=== PATIENT | female | born 1990 | race Hispanic/Latino ===

== ENCOUNTER 2017-10-31 09:05 | Emergency (ER) | payer OTHER ==
[2017-10-31] MEDS ORDERED: DEXAMETHASONE SOD PHOSPHATE 10MG/ML 1ML VIAL ONE (09:47)
[2017-10-31] MEDS ORDERED: DiphenhydrAMINE HCL 50 MG/ML VIAL ONE (09:47)
[2017-10-31] MEDS ORDERED: FAMOTIDINE 20MG TAB 20 MG TAB ONE (09:47)
== END 2017-10-31 10:04 | disposition home or self-care (01) ==
LOC: EDH 09:05
DX: T78.49XA Other allergy, initial encounter (principal); Z87.891 Personal history of nicotine dependence; X58.XXXA Exposure to other specified factors, initial encounter
CPT/HCPCS: 96372 ×2; 99284; J1100; J1200